=== PATIENT | male | born 1985 | race Caucasian/White ===

== ENCOUNTER 2019-09-30 05:09 | Emergency (ER) | payer SELFPAY ==
[2019-09-30] MEDS ORDERED: LIDOCAINE 1% MPF 30 ML VIAL ONE (05:23)
--- NOTE | 2019-09-30 06:54 | ER ---
Nurse's Notes [facility] Name: Alex Montez Age: 34 yrs Sex: Male : 1985 Arrival Date: 09/30/2019 Time: 05:12 Bed 6 Private MD: Diagnosis: Superficial left hand laceration;Right thumb laceration;Right 2nd digit laceration;Left upper arm laceration;Laceration of extensor muscle, fascia and tendon of left little finger at wrist and hand level Presentation: 09/29 05:13 Chief complaint: EMS states: they were toned out for report of pt with lacerations to bb bilateral hands. Coronavirus screen: At this time, the client does not indicate any symptoms associated with coronavirus-19. Ebola Screen: No symptoms or risks identified at this time. Initial Sepsis Screen: Does the patient meet any 2 criteria? No. Patient's initial sepsis screen is negative. Does the patient have a suspected source of infection? No. Patient's initial sepsis screen is negative. Risk Assessment: Do you want to hurt yourself or someone else? Patient reports no desire to harm self or others. Onset of symptoms was September 30, 2019. 05:13 Method Of Arrival: EMS: [facility] bb 05:13 Acuity: IVANNA 3 bb Historical: - Allergies: 05:15 No Known Allergies; bb - Home Meds: 05:15 None [Active]; bb - PMHx: 05:15 Anxiety; bb - PSHx: 05:15 None; bb - Immunization history:: Adult Immunizations unknown, Last tetanus immunization: < 5 years ago. - Social history:: Smoking status: Patient reports the use of cigarette tobacco products, smokes one pack cigarettes per day. Patient uses alcohol, occasionally. street drugs, Methamphetamine (Meth). - Family history:: not pertinent. - Hospitalizations: : No recent hospitalization is reported. Screenin:18 Abuse screen: Denies threats or abuse. Denies injuries from another. Nutritional rr5 screening: No deficits noted. Tuberculosis screening: No symptoms or risk factors identified. Fall Risk None identified. Total Jordan Fall Scale indicates No Risk (0-24 pts). Assessment: 05:15 General: Appears in no apparent distress. uncomfortable, Behavior is calm, cooperative, rr5 appropriate for age, accompanied by [place] police placed on handcuff right hand.. 05:15 Pain: Complains of pain in dorsum of left hand Pain currently is 9 out of 10 on a pain rr5 scale. Quality of pain is described as aching, Pain began suddenly, Is intermittent. Neuro: Level of Consciousness is awake, alert, obeys commands, Oriented to person, place, time, situation. Cardiovascular: Capillary refill < 3 seconds Patient's skin is warm and dry. Respiratory: Airway is patent Respiratory effort is even, unlabored, Respiratory pattern is regular, symmetrical. GI: No signs and/or symptoms were reported involving the gastrointestinal system. : No signs and/or symptoms were reported regarding the genitourinary system. EENT: No signs and/or symptoms were reported regarding the EENT system. Derm: Skin temperature is warm Wound noted right hand and left hand Wound is lacerated wound left hand abrasion, right hand thumb and pointing finger cut wound noted. Musculoskeletal: Capillary refill < 3 seconds. 06:10 Reassessment: Patient appears in no apparent distress at this time. local anesthesia rr5 injected by ED provider. wound cleaning and suture done on the lacerated wound right thumb, pointing finger left upper arm. 06:20 Reassessment: wound exploration on the left hand done by ED provider cut tendon noted. rr5 with plan to be transfer refer to hand surgeon. 06:55 Reassessment: ED provider spoke to hand surgeon with order to close the wound and rr5 follow up [employer] on tuesday. Vital Signs: 05:13 BP 126 / 99; Pulse 123; Resp 16 S; Temp 98.6(O); Pulse Ox 97% on R/A; Weight 76.2 kg bb (R); Height 6 ft. 0 in. (182.88 cm) (R); Pain 9/10; 05:37 BP 128 / 84; Pulse 111; Resp 19; Pulse Ox 99% ; rr5 06:30 BP 121 / 70; Pulse 110; Resp 18; Pulse Ox 99% ; rr5 05:13 Body Mass Index 22.78 (76.20 kg, 182.88 cm) bb ED Course: 05:12 Patient arrived in ED. rn 05:12 Ishaan Braun MD is Attending Physician. rn 05:14 Lyndon Westbrook RN is Primary Nurse. rr5 05:15 Triage completed. bb 05:15 Arm band placed on Patient placed in an exam room, on a stretcher, on pulse oximetry, bb accompanied by PD. 05:18 Patient has correct armband on for positive identification. Bed in low position. Call rr5 light in reach. Side rails up X2. Pulse ox on. NIBP on. 05:30 Wound care: to laceration located on left hand was cleaned with Hibiclens, irrigated rr5 with normal saline, Patient tolerated well. 05:54 XRAY Hand LEFT 3 View In Process Unspecified. EDMS 05:54 XRAY Hand RIGHT 3 View In Process Unspecified. EDMS 07:00 Assist provider with laceration repair on right hand, left arm and left hand that was rr5 between 2.6 to 7.5 cm using sutures. Set up tray. Performed by Ishaan Braun MD Dressed with 4X4s, Kerlix, Neosporin, Patient tolerated well. lacerated on right thumb, right pointing finger, left upper arm and left hand. 07:00 Patient did not have IV access during this emergency room visit. rr5 Administered Medications: 06:10 Drug: Lidocaine (1 %) 1 vials {Note: given by dr. braun.} Volume: 20 ml; Route: rr5 Infiltration; 07:10 Drug: [place]acey 10 mg-325 mg 1 tabs {Note: rass 0.} Route: PO; rr5 07:26 Follow up: Response: No adverse reaction; Pain is decreased bp 07:11 Drug: KeFLEX 500 mg Route: PO; rr5 07:27 Follow up: Response: No adverse reaction bp Outcome: 06:54 Discharge ordered by . rn 07:28 Discharged to home ambulatory. bp 07:28 Condition: stable 07:28 Discharge instructions given to patient, Instructed on discharge instructions, follow up and referral plans. medication usage, Demonstrated understanding of instructions, follow-up care, medications, splint care, Prescriptions given X 2. 07:29 Patient left the ED. bp Signatures: Dispatcher [employer] Monika Ta RN RN Ishaan Parish MD MD rn Peltier, Brian, RN RN bp Roque, Raymond, RN RN rr5 Corrections: (The following items were deleted from the chart) 05:23 05:15 Derm: Skin temperature is warm Wound noted right hand and left hand Wound is rr5 lacerated wound left hand abrasion right hand rr5
--- NOTE | 2019-09-30 06:54 | EDPHYS ---
Physician Documentation [facility] Name: Alex Montez Age: 34 yrs Sex: Male : 1985 Arrival Date: 09/30/2019 Time: 05:12 Bed 6 Private MD: ED Physician Ishaan Braun HPI: 09/29 05:13 This 34 yrs old Male presents to ER via Unassigned with complaints of rn laceration/hand injury. 05:13 The laceration(s) is(are) located on the right hand and left hand. Onset: The rn symptoms/episode began/occurred just prior to arrival. It is unknown whether or not the patient has had similar symptoms in the past. Per report, patient broke glass with hands, + moderate sized laceration left hand, does not feel foreign body present, small abrasions to both hands, no other injuries. . Historical: - Allergies: 05:15 No Known Allergies; bb - Home Meds: 05:15 None [Active]; bb - PMHx: 05:15 Anxiety; bb - PSHx: 05:15 None; bb - Immunization history:: Adult Immunizations unknown, Last tetanus immunization: < 5 years ago. - Social history:: Smoking status: Patient reports the use of cigarette tobacco products, smokes one pack cigarettes per day. Patient uses alcohol, occasionally. street drugs, Methamphetamine (Meth). - Family history:: not pertinent. - Hospitalizations: : No recent hospitalization is reported. ROS: 05:13 Constitutional: Negative for fever, chills, and weight loss, MS/Extremity: + laceration rn left hand Neuro: Negative for weakness, numbness, tingling Exam: 05:13 Constitutional: This is a well developed, well nourished patient who is awake, alert, rn and in no acute distress. MS/ Extremity: Pulses equal, no cyanosis. Neurovascular intact. Full, normal range of motion. +left dorsal hand with irregular/superficial laceration approx 5 cm in length, no active bleeding. No foreign bodies identified. Right dorsal thumb with 1 cm superficial laceration along IP joint. Right 2nd digit with 2cm superficial laceration. Left triceps area with 2 cm superficial laceration. + partial tendon laceration looks like EDM, patient still able to extend all digits to straight position, slight weakness of left 5th digit to active resistance. Vital Signs: 05:13 BP 126 / 99; Pulse 123; Resp 16 S; Temp 98.6(O); Pulse Ox 97% on R/A; Weight 76.2 kg bb (R); Height 6 ft. 0 in. (182.88 cm) (R); Pain 9/10; 05:37 BP 128 / 84; Pulse 111; Resp 19; Pulse Ox 99% ; rr5 06:30 BP 121 / 70; Pulse 110; Resp 18; Pulse Ox 99% ; rr5 05:13 Body Mass Index 22.78 (76.20 kg, 182.88 cm) Procedures: 07:01 Splinting: Splint applied to dorsum of left hand and left hand using Orthoglass splint, rn applied by Examined by me, post splint application: neurovascular intact, 2+ distal pulses palpable, brisk capillary refill noted, Patient tolerated well. Laceration: 06:44 Wound Repair of 5cm ( 2.0in ) subcutaneous laceration to dorsum of left hand. Distal rn neuro/vascular/tendon intact. Anesthesia: Wound infiltrated with 3 mls of 1% lidocaine. Wound prep: Extensive cleansing by nurse, Wound irrigation by nurse, Wound explored extensively, Copious irrigation. Skin closed with 13 4-0 Prolene using interrupted sutures and sterile technique. Dressed with Kerlix. Patient tolerated well. 06:44 Wound Repair of 2cm ( 0.8in ) subcutaneous laceration to left upper arm. Distal rn neuro/vascular/tendon intact. Anesthesia: Wound infiltrated with 1 mls of 1% lidocaine. Wound prep: Extensive cleansing by nurse, Wound irrigation by nurse, Wound explored extensively. Skin closed with 2 3-0 Prolene using interrupted sutures and sterile technique. Dressed with bandaid. Patient tolerated well. 06:44 Wound Repair of 1cm ( 0.4in ) subcutaneous laceration to right thumb. Distal rn neuro/vascular/tendon intact. Anesthesia: Wound infiltrated with 1 mls of 1% lidocaine. Wound prep: Extensive cleansing by nurse, Wound irrigation by nurse, Wound explored extensively. Skin closed with 2 3-0 Prolene using interrupted sutures and sterile technique. Dressed with bandaid. Patient tolerated well. 06:44 Wound Repair of 1cm ( 0.4in ) subcutaneous laceration to right 2nd digit. Distal rn neuro/vascular/tendon intact. Anesthesia: Wound infiltrated with 1 mls of 1% lidocaine. Wound prep: Extensive cleansing by tv technician, Wound irrigation by nurse, Wound explored extensively. Skin closed with 2 3-0 Prolene using interrupted sutures and sterile technique. Dressed with bandaid. Patient tolerated well. MDM: 05:12 Patient medically screened. rn 06:27 ED course: Spoke with Dr. Salgado, who states patient does not need to be transferred rn for emergent care for tendon laceration, recommends outpt f/u on Tuesday, gave me numbers [phone] and [phone] for patient to call. Requests suture of skin and place in splint.. 06:44 Differential diagnosis: superficial laceration, tendon injury. Data reviewed: vital rn signs, nurses notes, radiologic studies, plain films, and as a result, I will discharge patient. Counseling: I had a detailed discussion with the patient and/or guardian regarding: the historical points, exam findings, and any diagnostic results supporting the discharge/admit diagnosis, radiology results, the need for outpatient follow up, to return to the emergency department if symptoms worsen or persist or if there are any questions or concerns that arise at home. Response to treatment: the patient's symptoms have markedly improved after treatment, and as a result, I will discharge patient. ED course: Pt notified by police, that is free to go, will issue warrants. Spoke at length with patient regarding importance of f/u with Dr. Salgado for definitive care. . 09/29 05:13 Order name: XRAY Hand LEFT 3 View rn 09/29 05:19 Order name: XRAY Hand RIGHT 3 View rn 09/29 05:13 Order name: Wound Care; Complete Time: 05:22 rn 09/29 05:13 Order name: Wound dressing; Complete Time: 05:21 rn 09/29 06:25 Order name: Prolene, Sutures; Complete Time: 06:25 rr5 09/29 06:25 Order name: Dressing - Wound; Complete Time: 06:25 rr5 09/29 06:25 Order name: Gloves, Sterile; Complete Time: 06:25 rr5 09/29 06:25 Order name: Setup Suture Tray; Complete Time: 06:25 rr5 09/29 06:52 Order name: Splint - Ulnar Gutter: splint with 4th/5th digits in extension; Complete rn Time: 07:26 Administered Medications: 06:10 Drug: Lidocaine (1 %) 1 vials {Note: given by dr. braun.} Volume: 20 ml; Route: rr5 Infiltration; 07:10 Drug: [place] 10 mg-325 mg 1 tabs {Note: rass 0.} Route: PO; rr5 07:26 Follow up: Response: No adverse reaction; Pain is decreased bp 07:11 Drug: KeFLEX 500 mg Route: PO; rr5 07:27 Follow up: Response: No adverse reaction bp Disposition: 09/30/19 06:54 Discharged to Home. Impression: Superficial left hand laceration, Right thumb laceration, Right 2nd digit laceration, Left upper arm laceration, Laceration of extensor muscle, fascia and tendon of left little finger at wrist and hand level. - Condition is Stable. - Discharge Instructions: Cast or Splint Care, Adult, Laceration Care, Adult, Tendon Repair. - Prescriptions for Keflex 500 mg Oral Capsule - take 1 capsule by ORAL route every 12 hours for 10 days; 20 capsule. Tylenol- Codeine #3 300-30 mg Oral Tablet - take 2 tablets by ORAL route every 6 hours As needed; 20 tablet. - Medication Reconciliation Form, Thank You Letter, Antibiotic Education, Prescription Opioid Use form. - Follow up: Private Physician; When: 10/01/2019; Reason: Recheck today's complaints, Continuance of care. - Problem is new. - Symptoms have improved. - Notes: Call for appointment this September with Dr. Salgado, hand surgeon with [facility]. Call either [phone] or [phone]. Again, he can see you in clinic this Tuesday if you call for appointment and show up. Signatures: Dispatcher [employer] EDMonika Mayer RN RN bb Nieto, Roman, MD MD rn Peltier, Brian, RN RN bp Roque, Raymond, RN RN rr5 Corrections: (The following items were deleted from the chart) 05:20 05:13 Constitutional: This is a well developed, well nourished patient who is awake, rn alert, and in no acute distress. MS/ Extremity: Pulses equal, no cyanosis. Neurovascular intact. Full, normal range of motion. +left dorsal hand with irregular/superficial laceration approx 5 cm in length, no aactive bleeding. No foreign bodies identified. rn 06:45 05:13 Constitutional: This is a well developed, well nourished patient who is awake, rn alert, and in no acute distress. MS/ Extremity: Pulses equal, no cyanosis. Neurovascular intact. Full, normal range of motion. +left dorsal hand with irregular/superficial laceration approx 5 cm in length, no aactive bleeding. No foreign bodies identified. Right dorsal thumb with 1 cm superficial laceration along IP joint. rn 07:02 05:13 Constitutional: This is a well developed, well nourished patient who is awake, rn alert, and in no acute distress. MS/ Extremity: Pulses equal, no cyanosis. Neurovascular intact. Full, normal range of motion. +left dorsal hand with irregular/superficial laceration approx 5 cm in length, no active bleeding. No foreign bodies identified. Right dorsal thumb with 1 cm superficial laceration along IP joint. Right 2nd digit with 2cm superficial laceration. Left triceps area with 2 cm superficial laceration. rn 07:29 06:54 09/30/2019 06:54 Discharged to Home. Impression: Superficial left hand bp laceration; Right thumb laceration; Right 2nd digit laceration; Left upper arm laceration; Laceration of extensor muscle, fascia and tendon of left little finger at wrist and hand level. Condition is Stable. Forms are Medication Reconciliation Form, Thank You Letter, Antibiotic Education, Prescription Opioid Use. Follow up: Private Physician; When: 10/01/2019; Reason: Recheck today's complaints, Continuance of care. Problem is new. Symptoms have improved. rn
[2019-09-30] MEDS ORDERED: CEPHALEXIN 250 MG CAP ONE (07:19)
[2019-09-30] MEDS ORDERED: HYDROCODONE/APAP 10/325 TAB ONE (07:19)
--- NOTE | 2019-09-30 08:45 | RAD REPORT ---
EXAM DESCRIPTION: RAD -Hand Left 3 View - 09/30/2019 5:54 am CLINICAL HISTORY: Left hand pain status post injury FINDINGS: No fracture or dislocation is seen. A soft tissue laceration
--- NOTE | 2019-09-30 08:46 | RAD REPORT ---
EXAM DESCRIPTION: RAD - Hand Right 3 View - 09/30/2019 5:54 am CLINICAL HISTORY: Right hand pain status post injury FINDINGS: No fracture or dislocation is seen. A soft tissue laceration
== END 2019-09-30 07:29 | disposition home or self-care (01) ==
LOC: ER 05:09
PROC: 0JQK0ZZ Repair Left Hand Subcutaneous Tissue and Fascia, Open Approach (ICD-10-PCS; principal; 2019-09-30)
PROC: 0JQJ0ZZ Repair Right Hand Subcutaneous Tissue and Fascia, Open Approach (ICD-10-PCS; 2019-09-30)
PROC: 0JQF0ZZ Repair Left Upper Arm Subcutaneous Tissue and Fascia, Open Approach (ICD-10-PCS; 2019-09-30)
DX: S41.112A Laceration without foreign body of left upper arm, initial encounter (principal); S61.011A Laceration without foreign body of right thumb without damage to nail, initial encounter; S61.212A Laceration without foreign body of right middle finger without damage to nail, initial encounter; S66.327A Laceration of extensor muscle, fascia and tendon of left little finger at wrist and hand level, initial encounter; W25.XXXA Contact with sharp glass, initial encounter; Y93.9 Activity, unspecified; Y92.9 Unspecified place or not applicable; F17.210 Nicotine dependence, cigarettes, uncomplicated
CPT/HCPCS: 99284

== ENCOUNTER 2021-10-29 12:11 | Emergency (ER) | payer SELFPAY ==
--- OUTSIDE RECORDS SUMMARY | 2021-10-29 12:16 | XMS REPORT | Continuity of Care Document ---
:1985 Author Organization [facility] t Address [address] [place] [address] Care Team Providers Name Role Phone Pcp, Patient Does Not Have A Primary Care Physician [phone] MARYJO SWENSON Attending Clinician Unavailable Maryjo Swenson MD Attending Clinician Gregg Olivier MD Attending Clinician Afia Dickinson DO Attending Clinician AFIA DICKINSON Attending Clinician Unavailable PING CLINE Attending Clinician Unavailable GREGG OLIVIER Admitting Clinician Unavailable Gregg Olivier MD Admitting Clinician Problems Condition Condition Condition Status Onset Resolution Last Treating Co mments Source Name Details Category Date Date Treatment Clinician Date Rhabdomyol Rhabdomyol Disease Active U nivers ysis ysis 10-15 ity of 00:00: [address] Allergies, Adverse Reactions, Alerts Allergy Allergy Status Severity Reaction(s) Onset Inactive Treating Comm ents Source Name Type Date Date Clinician NO KNOWN Drug Active Univers ALLERGIE Class ity of S [facility] Social History Social Habit Start Date Stop Date Quantity Comments Source Alcohol intake 2021-10-15 2021-10-15 Current drinker Unive rsity of 00:00:00 00:00:00 of alcohol [facility] [place] Tobacco use and 2021-10-15 2021-10-15 Smokeless tobacco Un iversity of exposure 00:00:00 00:00:00 non-user [facility] Exposure to 2021-10-04 2021-10-14 Unable to assess Univers ity of SARS-CoV-2 00:00:00 23:26:00 [facility] (event) Branch History of 2011-03-17 Cigarette Smoker Universi ty of tobacco use 00:00:00 [facility] Sex [birth year] Universit y of 00:00:00 00:00:00 [facility] Smoking Status Start Date Stop Date Source Ex-smoker 2021-10-15 00:00:00 2021-10-15 00:00:00 Universi ty of [facility] Medications Ordered Filled Start Stop Current Ordering Indication Dosage Frequency Signature Comments Components Source Medication Medication Date Date Medication? Clinician (SIG) Name Name enoxaparin Yes 30mg 30 mg, Unive rs (LOVENOX) 10-15 Subcutaneo ity of injection 22:00: [place], [place], [place] 30 mg 00 First dose Medical on [facility] 10/15/21 at 1700, Until Discontinu ed, Routine multivitami Yes 1{tbl} 1 tablet, Univers n tablet 1 10-15 Oral, ity of tablet 14:00: DAILY, [place] 00 First dose Medical on [facility] 10/15/21 at 0900, Until Discontinu ed, Routine foLIC acid Yes 1mg 1 mg, Univer s (FOLATE) 10-15 Oral, ity of tablet 1 mg 14:00: [place]ILY, [place] First dose Medical on [facility] 10/15/21 at 0900, Until Discontinu ed, Routine thiamine Yes 100mg 100 mg, Unive rs (VITAMIN 10-15 Oral, ity of B1) tablet 14:00: DAILY, [place] 100 mg 00 First dose Medical on [facility] 10/15/21 at 0900, Until Discontinu ed, Routine docusate Yes 100mg 100 mg, Unive rs (COLACE) 10-15 Oral, BID, ity o f capsule 100 13:00: First dose [place] mg 00 on [facility] 10/15/21 at Branch 0800, Until Discontinu ed, Routine Sliding 2022-0 Yes Subcutaneo Univ ers Scale 9-08 us, TID ity of Insulin - 13:00: MEALS, [place] Lispro 00 First dose Medical (HumaLOG) + on [facility] 10/15/21 at Testing 0800, Until Discontinu ed, Routine thiamine 2021- Yes 300mg IV Univers (VITAMIN 10-15 Piggyback, ity of B1) 300 mg 11:00: 10:59 QAM-0600, [place] in NaCl 00 :00 2 doses, Medical 0.9% (NS) First dose Bran ch piggyback on Tue10/15/21 at 0600, Last dose on Tue10/16/21 at 0600, 100 mL NaCl 0.9% Yes 1000mL at 100 Univ ers (NS) IV 908 mL/hr, IV ity of infusion 08:00: Infusion, [place] 1,000 mL 00 CONTINUOUS Medic al , Starting Branch on Tue10/15/21 at 0300, Until Discontinu ed, Routine NaCl 0.9% 2021- No 1000mL at 999 Uni vers (NS) bolus 10-15 mL/hr, ity of infusion 05:45: 06:26 1,000 mL, Pool as 1,000 mL 00 :00 IV Medical Infusion, Branch ONCE, 1 dose, On Tue10/15/21 at 0045, STAT NaCl 0.9% 2021- No 2000mL at 999 Uni vers (NS) bolus 10-15 mL/hr, ity of infusion 05:00: 05:40 2,000 mL, Pool as 2,000 mL 00 :00 IV Medical Infusion, Branch ONCE, 1 dose, On Tue10/15/21 at 0000, JANES LORazepam 2021- No 2mg 2 mg, Slow U nivers (ATIVAN) 10-15 IV Push, ity of injection 2 04:45: 04:31 ONCE, 1 [place] mg 00 :00 dose, On Medical 10/14/21 Branch at 2345, STAT
Is the medication being used for status epilepticu s? No LORazepam 2021- No 2mg 2 mg, Slow U nivers (ATIVAN) 10-15 IV Push, ity of injection 2 04:15: 04:07 ONCE, 1 [place] mg 00 :00 dose, On Medical 10/14/21 Branch at 2315, STAT
Is the medication being used for status epilepticu s? No ibuprofen No 600mg 600 mg, Uni vers (IBU) 07-27 06-20 Oral, ity of tablet 600 19:30: 18:18 ONCE, 1 [place] mg 00 :00 dose, On Medical Mon Branch 07/27/21 at 1430, JANES NaCl 0.9% No 1000mL at 999 Uni vers (NS) bolus 07-27 06-20 mL/hr, ity of infusion 18:45: 18:16 1,000 mL, Pool as 1,000 mL 00 :00 IV Medical Infusion, Branch ONCE, 1 dose, On 07/27/21 at 1345, JANES terazosin 5 Yes 5mg Take 1 Univ ers mg capsule 03-17 capsule by ity of 00:00: mouth at [place] 00 bedtime. Medical Branch terazosin 5 No 5mg Take 1 Uni vers mg capsule 03-17 capsule by it y of 00:00: 00:00 mouth at [place] 00 :00 bedtime. [facility] Vital Signs Vital Name Observation Time Observation Value Comments Source Systolic blood 2021-10-15 16:19:00 162 mm[Hg] Univer sity [facility] Diastolic blood 2021-10-15 16:19:00 105 [facility] 2021-10-15 16:19:00 100 /min [facility] Body temperature 2021-10-15 16:19:00 35.78 [facility] Respiratory rate 2021-10-15 16:19:00 18 /min [facility] acute hospital Oxygen saturation in 2021-10-15 16:19:00 98 /min [facility] Arterial blood by [facility] Pulse oximetry Branch Body weight 2021-10-15 09:56:00 76.975 kg [facility] BMI 2021-10-15 09:56:00 25.80 kg/m2 [facility] Body height 2021-10-15 04:04:00 172.7 cm Universi ty [facility] Systolic blood 2021-07-27 17:27:00 152 mm[Hg] Univer sity of pressure [facility] Diastolic blood 2021-07-27 17:27:00 99 mm[Hg] [facility] Heart rate 2021-07-27 17:27:00 100 /min [facility] ty [facility] Body temperature 2021-07-27 17:27:00 37.22 [facility] Respiratory rate 2021-07-27 17:27:00 18 /min [facility] height 2021-07-27 17:27:00 182.9 cm [facility] Body weight 2021-07-27 17:27:00 81.647 kg [facility] BMI 2021-07-27 17:27:00 24.41 kg/m2 [facility] Oxygen saturation in 2021-07-27 17:27:00 99 /min [facility] Arterial blood by [facility] Pulse oximetry Branch Procedures Procedure Date / Time Performing Clinician Source Performed SEDIMENTATION RATE 2021-10-15 16:08:00 Gregg Olivier [facility] PROTHROMBIN TIME / INR 2021-10-15 16:08:00 Gregg Olivier [facility] N-TERMINAL PRO-BNP 2021-10-15 16:08:00 Gregg Olivier [facility] AC VBG + LACTIC ACID 2021-10-15 16:08:00 Gregg [facility] CREATINE KINASE 2021-10-15 16:08:00 Gregg Olivier [facility] URIC ACID 2021-10-15 16:08:00 Gregg Olivier [facility] MAGNESIUM 2021-10-15 16:08:00 Soy jese [facility] IRON PANEL 2021-10-15 16:06:00 Soy jese [facility] LACTIC ACID WHOLE BLOOD 2021-10-15 06:26:00 Afia Dickinson [facility] COVID-19 (ID NOW RAPID 2021-10-15 06:26:00 Maryjo Swenson [facility] TESTING) Medical Branch LAB ONLY COVID 2021-10-15 06:26:00 Maryjo Swenson [facility] INTERPRETATION Medical Branch ETHANOL 2021-10-15 04:07:00 Soy jese [facility] CBC WITH DIFF 2021-10-15 04:07:00 Afia Dickinson [facility] GLYCOSYLATED HEMOGLOBIN 2021-10-15 04:07:00 Soy jese [facility] (A1C) [facility] N-TERMINAL PRO-BNP 2021-10-15 04:07:00 Soy [facility] LACTIC ACID WHOLE BLOOD 2021-10-15 04:07:00 Afia Dickinson [facility] PHOSPHORUS 2021-10-15 04:07:00 Soy jese [facility] CREATINE KINASE 2021-10-15 04:07:00 Afia Dickinson [facility] URIC ACID 2021-10-15 04:07:00 Soy [facility] MAGNESIUM 2021-10-15 04:07:00 Soy [facility] FERRITIN SERUM 2021-10-15 04:07:00 Soy [facility] THYROID STIMULATING 2021-10-15 04:07:00 Soy jese [facility] HORMONE [facility] Branch COMP. METABOLIC PANEL 2021-10-15 04:07:00 Afia Dickinson [facility] ([id number]) [facility] LIPID PANEL ([id number])(TOTAL 2021-10-15 04:07:00 Gregg Olivier [facility] CHOLESTEROL, [facility] TRIGLYCERIDES, HDL) Encounters Start End Encounter Admission Attending Care Care Encounter Source Date/Time Date/Time Type Type Clinicians Facility Department ID 2021-10-14 2021-10-15 Outpatient X [facility] [id number] Univers 23:11:00 13:35:00 MARYJO hammer [facility] 2021-10-14 2021-10-15 Emergency Maryjo Swenson [facility] [id number] Univers 23:11:00 13:35:00 Gregg OlivierLISA [id number] ity of [place] [id number] [facility] [id number] [place] [id number] Branch 2021-07-27 2021-07-27 Emergency [facility] [id number] Univers 12:28:00 13:37:00 Afia HEBERT [id number] ity of [place] [id number] [facility] [id number] [place] [id number] [place] 2021-07-27 2021-07-27 Emergency X [facility] ERT [id number] Univers 12:28:00 13:37:00 [facility] 2019-10-16 2019-10-16 [id number] [facility] 10:30:00 10:30:00 PING [facility] Results Test Description Test Time Test Comments Results Result Comments Source SEDIMENTATION RATE 2021-10-15 17:18:43 Test Item Value Reference Range Interpretation Comme nts ESR (test code = 1746996199) See_Comment [Automated message] The system which generated this result transmitted ref erence range: 0 - 10 mm/HR. The r eference range was not used to int erpret this result as normal/abnor mal. Lab Interpretation (test code = Normal 72235-0) [facility] [id number] 17:15:10 Test Item Value Reference Range Interpretation Comments NT-proBNP (test code 43 pg/mL See_Comment [Autom ated = 0810312767) message] The system which generated this result transmitted reference range : <=125. The reference range was not used to interpret this result as normal/abnormal . KEVIN (test code = KEVIN) Biotin has been reported to cause a negative bias, interpret results relative to patient's use of biotin. Lab Interpretation Normal (test code = 71993-4) [facility] [place] [facility] CampusIRON [id number] 17:13:08 Test Item Value Reference Range Interpretation Comments IRON (test code = 0457632553) 146 ug/dL 50-160 TIBC (test code = 2277317476) 272 ug/dL 250-410 % FE SAT (test code = 1680401937) 54 % 20-50 H Lab Interpretation (test code = Abnormal 85914-6) [facility] [place] [facility] CampusMAGNESIUM2022-09-08 17:04:30 Test Item Value Reference Range Interpretation Comments MAGNESIUM (test code = 3676964890) 2.6 mg/dL 1.7-2.4 H Lab Interpretation (test code = Abnormal 47005-0) [facility] [place] [facility]URIC [id number] 17:04:30 Test Item Value Reference Range Interpretation Comments URIC ACID (test code = 2166838633) 4.0 mg/dL 3.6-8 Lab Interpretation (test code = Normal 48638-0) [facility] [place] [facility] CampusCREATINE [id number] 17:04:10 Test Item Value Reference Range Interpretation Comments CK (test code = 7843373624) 697 U/L 33-194 H Lab Interpretation (test code = Abnormal 60430-9) [facility] [place] [facility] CampusProthrombin Time / [id number] 16:56:07 Test Item Value Reference Range Interpretation Comments PROTIME PATIENT (test See_Comment [Auto mated message] code = 5964-2) The system wh ich generated this result transmitted ref erence range: 12.0 - 1 4.7 Seconds. The re ference range was not u sed to interpret this result as normal/abnor mal. INR (test code = 6301-6) Nor mal INR <1.1; Warfarin Therap eutic range 2.0 to 3. 0 or 2.5 to 3.5, dep ending upon the indica tions. Lab Interpretation (test Normal code = 40440-5) [facility] [place] [facility] CampusAC VBG + LACTIC [id number] 16:48:15 Test Item Value Reference Range Interpretation Comments PH (test code = 7.32-7.42 1940300043) PCO2 SUSY (test code = See_Comment L [Auto mated 8207395026) message] The sy stem which generated this result transmitted reference range : 41 - 51 mmHg. The reference range was not used to interpret this result as normal/abnormal . PO2 SUSY (test code = See_Comment HH [Autom ated 3306578506) message] The sy stem which generated this result transmitted reference range : 25 - 40 mmHg. The reference range was not used to interpret this result as normal/abnormal . HCO3 SUSY (test code = See_Comment L [Auto mated 4535924510) message] The sy stem which generated this result transmitted reference range : 24 - 28 mEq/L. The reference range was not used to interpret this result as normal/abnormal . AC VBE(BEAKER) (test mEq/L code = 3038221678) LACTIC ACID (test code 1.25 mmol/L 0.5-2.2 = 7802123624) Lab Interpretation Abnormal (test code = 14625-2) [facility] [place] [facility] CampusFERRITIN [id number] 11:59:17 Test Item Value Reference Range Interpretation Comments FERRITIN (test code = 141.0 ng/mL 18-464 9624971063) KEVIN (test code = KEVIN) Biotin has been reported to cause a negative bias, interpret results relative to patient's use of biotin. Lab Interpretation (test Normal code = 02619-3) [facility] [place] [facility] CampusTHYROID STIMULATING [id number] 11:55:15 Test Item Value Reference Range Interpretation Comments TSH (test code = See_Comment [Automated message] 9010281116) The system [employer] generated this result transmitted ref erence range: 0.45 - 4 .70 mIU/L. The refe rence range was not u sed to interpret this result as normal/abnor mal. Lab Interpretation (test Normal code = 99896-5) [facility] CampusN-TERMINAL [id number] 11:33:36 Test Item Value Reference Range Interpretation Comments NT-proBNP (test code 53 pg/mL See_Comment [Autom ated = 5758770872) message] The system which generated this result transmitted reference range : <=125. The reference range was not used to interpret this result as normal/abnormal . KEVIN (test code = KEVIN) Biotin has been reported to cause a negative bias, interpret results relative to patient's use of biotin. Lab Interpretation Normal (test code = 22333-2) [facility] [place] [facility] CampusETHANOL2022-09-08 11:31:15 ALCOHOL<10mg/dL10/15/2021 6:31 AM [facility]<10 Xetnrrtu78-035 Toxic>100 Depression of [employer]>400 Fatalities ReportedUnHCA [facility] CypressMAGNESIUM2022-09-08 11:31:05 Test Item Value Reference Range Interpretation Comments MAGNESIUM (test code = 7875081669) 2.3 mg/dL 1.7-2.4 Lab Interpretation (test code = Normal 78058-0) [facility] [place] [facility] CampusURIC [id number] 11:31:00 Test Item Value Reference Range Interpretation Comments URIC ACID (test code = 5987072702) 7.8 mg/dL 3.6-8 Lab Interpretation (test code = Normal 78536-9) [facility] [place] [facility] CampusPHOSPHORUS2022-09-08 11:30:50 Test Item Value Reference Range Interpretation Comments PHOSPHORUS (test code = 6362327904) 5.6 mg/dL 2.5-5 H Lab Interpretation (test code = Abnormal 70927-3) [facility] CampusLIPID PANEL (01327)(TOTAL CHOLESTEROL, TRIGLYCERIDES, HDL)2021-10-15 11:24:12 Test Item Value Reference Range Interpretation Comments CHOL (test code = 148 mg/dL 120-200 2282281239) HDL (test code = 52 mg/dL See_Comment [Automated message] 7285440382) The system [employer] generated this result transmit sharath reference range : >=40. The refer ence range was not u sed to interpret th is result as normal/abnormal . HDLC RATIO (test code = See_Comment [Au tomated message] 4469195967) The system [employer] generated this result transmit sharath reference range : <=5.0. The refe rence range was not u sed to interpret th is result as normal/abnormal . TRIG (test code = 66 mg/dL 30-170 0730804557) LDL CHOL (test code = 83 mg/dL See_Comment [Auto mated message] 71351-4) The system [employer] generated this result transmit sharath reference range : <=160. The refe rence range was not u sed to interpret th is result as normal/abnormal . VLDL (test code = 13 mg/dL 5-60 9305469296) Lab Interpretation (test Normal code = 23045-1) [facility] [place] [facility] CampusGLYCOSYLATED HEMOGLOBIN (A1C)2021-10-15 09:50:17 Test Item Value Reference Range Interpretation Comments HGB A1C (test code = 5.5 % 4-5.7 4548-4) KEVIN (test code = KEVIN) Reference RangesNormal: <5.7%Prediabetes: 5.7 - 6.4%Diabetes: > 6.5% Lab Interpretation (test Normal code = 87817-8) [facility]. METABOLIC PANEL (65250)2021-10-15 04:36:07 Test Item Value Reference Range Interpretation Comments NA (test code = 142 mmol/L 135-145 1049441879) K (test code = 4.0 mmol/L 3.5-5 4849670723) CL (test code = 102 mmol/L 98-108 2133203169) CO2 TOTAL (test code = 26 mmol/L 23-31 3659854146) AGAP (test code = 2-16 7638180028) BUN (test code = 29 mg/dL 7-23 H 9175204938) GLUCOSE (test code = 114 mg/dL 70-110 H 4501173716) CREATININE (test code = 1.62 mg/dL 0.6-1.25 H 8030354354) TOTAL BILI (test code = 1.9 mg/dL 0.1-1.1 H 8539014762) CALCIUM (test code = 9.8 mg/dL 8.6-10.6 4970465928) T PROTEIN (test code = 7.6 g/dL 6.3-8.2 5708660334) ALBUMIN (test code = 5.0 g/dL 3.5-5 4657481079) ALK PHOS (test code = 98 U/L 34-122 3611275458) ALTv (test code = 32 U/L 5-50 1742-6) AST(SGOT) (test code = 54 U/L 13-40 H 5866290055) eGFR (test code = mL/min/1.73m2 3975247938) KEVIN (test code = KEVIN) Association of Glomerular Filtration Rate (GFR) and Staging of Kidney Disease* + --+ --+ ------+| GFR (mL/min/1.73 m2) ?| With Kidney Damage ?| ?Without Kidney Damage+ --------+ --------+ +| ?>90 ?| ?Stage one ?| ? Normal ?+ ---+ ---+ -------+| ?60-89 ?| ?Stage two ?| ? Decreased GFR ? + --+ --+ ------+| ?30-59 ?| ?Stage three ?| ? Stage three ? + --+ --+ ------+| ?15-29 ?| ?Stage four ? | ? Stage four ?+ ---+ ---+ -------+| ?<15 (or dialysis) ? ?| ?Stage five ? | ? Stage five ?+ ---+ ---+ -------+ *Each stage assumes the associated GFR level has been in effect for at least three months. ?Stages 1 to 5, with or without kidney disease, indicate chronic kidney disease. Notes: Determination of stages one and two (with eGFR >59mL/min/1.73 m2) requires estimation of kidney damage for at least three months as defined by structural or functional abnormalities of the kidney, manifested by either:Pathological abnormalities or Markers of kidney damage (including abnormalities in the composition of the blood or urine or abnormalities in imaging tests). Lab Interpretation Abnormal (test code = 23559-0) [facility] CampusCREATINE [id number] 04:35:47 Test Item Value Reference Range Interpretation Comments CK (test code = 1113864784) 851 U/L 33-194 H Lab Interpretation (test code = Abnormal 55485-1) [facility] WITH [id number] 04:17:27 Test Item Value Reference Range Interpretation Comments WBC (test code = See_Comment H [Automated 0436-2) message] The system which generated this result transmit sharath reference range : 4.20 - 10.70 10*3/?L. The reference range was not used to interpret this result as normal/abnormal . RBC (test code = See_Comment H [Automated 265-8) message] The system which generated this result transmit sharath reference range : 4.26 - 5.52 10*6/?L. The reference range was not used to interpret this result as normal/abnormal . HGB (test code = 17.0 g/dL 12.2-16.4 H 718-7) HCT (test code = 47.7 % 38.4-49.3 4544-3) MCV (test code = 86.1 fL 81.7-95.6 787-2) MCH (test code = 30.7 pg 26.1-32.7 785-6) MCHC (test code = 35.6 g/dL 31.2-35 H 786-4) RDW-SD (test code = 37.1 fL 38.5-51.6 L 37619-3) RDW-CV (test code = 11.8 % 12.1-15.4 L 788-0) PLT (test code = See_Comment [Automated 777-3) message] The system which generated this result transmit sharath reference range : 150 - 328 10*3/ ?L. The reference range was not u sed to interpret th is result as normal/abnormal . MPV (test code = 10.0 fL 9.8-13 69691-6) NRBC/100 WBC (test See_Comment [Automat ed code = 3426313737) message] The system which generated this result transmit sharath reference range : 0.0 - 10.0 /100 WBCs. The reference range was not used to interpret this result as normal/abnormal . NRBC x10^3 (test code See_Comment [Auto mated = 8793407712) message] The system which generated this result transmit sharath reference range : 10*3/?L. The reference range was not used to interpret this result as normal/abnormal . GRAN MAT (NEUT) % 84.7 % (test code = 770-8) IMM GRAN % (test code 0.20 % = 2620160026) LYMPH % (test code = 7.3 % 736-9) MONO % (test code = 6.8 % 5905-5) EOS % (test code = 0.3 % 713-8) BASO % (test code = 0.7 % 706-2) GRAN MAT x10^3(ANC) 10.40 10*3/uL 1.99-6.95 H (test code = 2871730258) IMM GRAN x10^3 (test 0.03 10*3/uL 0-0.06 code = 8335478977) LYMPH x10^3 (test code 0.90 10*3/uL 1.09-3.23 L = 731-0) MONO x10^3 (test code 0.84 10*3/uL 0.36-1.02 = 742-7) EOS x10^3 (test code = 0.04 10*3/uL 0.06-0.53 L 711-2) BASO x10^3 (test code 0.09 10*3/uL 0.01-0.09 = 704-7) Lab Interpretation Abnormal (test code = 81050-4) [facility] CampusCT/NG, NAAT, [id number] 20:24:07 Test Item Value Reference Range Interpretation Comments GONORRHEA, NAAT NEGATIVE NEGATIVE IMPORTA NT NOTICE: SEE (test code = [place] [address]) [email or web address] Spine Note: Assay methodology is nucleic acid amplification b y yarn rewinder m ediated amplification ( TMA) utilizing the A ptima Combo 2 Assay. CHLAMYDIA, NAAT NEGATIVE NEGATIVE IMPORTA NT NOTICE: SEE (test code = [place] [address]) [email or web address] Spine Note: Assay methodology is nucleic acid amplification b y yarn rewinder m ediated amplification ( TMA) utilizing the A ptima Combo 2 Assay. [id number] 05:01:07 Test Item Value Reference Range Interpretation Comments RPR RESULT (test code = NON-REACTIVE NON-REACTIVE 3501) RPR TITER (test code = 3500) NOT INDIC. TITER NOT INDIC. HEPATITIS PANEL, [id number] 04:39:54 Test Item Value Reference Range Interpretation Comments HEPATITIS A IgM (test NON-REACTIVE NON-REACTIVE code = 35940) HEPATITIS B CORE IgM NON-REACTIVE NON-REACTIVE (test code = 4644) HEPATITIS B SURF AG NON-REACTIVE NON-REACTIVE (test code = 2739) HEPATITIS C ANTIBODY NON-REACTIVE NON-REACTIVE (test code = 4675) INTERPRETATION (NOTE) Hepatitis A HEPATITIS A: (test code sero logy shows no = 1162) evidence of acu te hepatitis A. INTERPRETATION (NOTE) Hepatitis B HEPATITIS B: (test code sero logy shows no = 82386) evidence of acu te hepatitis B and no indication of exposure to hepatitis B vir us in the previous simón eight months. INTERPRETATION (NOTE) Hepatitis C HEPATITIS C: (test code sero logy shows no = 48039) evidence of exposure to hepatitisC viru s at this time. I t can take up to 12 months after exposure tothe hepatitis C vir us for antibodies to become detectab le in the blood in certain patient s. HIV 1/2 4TH GEN, RFLX [id number] 04:39:54 Test Item Value Reference Range Interpretation Comments HIV 1/2 4TH GEN, NON-REACTIVE NON-REACTIVE UNLESS OTH ERWISE RFLX CONF (test INDICATED, A LL TESTING code = 3514) PERFORMED [facility] [employer] [address] [place] [address] 4 LABORATORY DIRE CTOR: Isha JOHNSON. CLIA NUMBER [id number] CAP ACCREDITATION N O. [id number]"
[2021-10-29] MEDS ORDERED: NA CHLORIDE 0.9% 1,000 ML ONE (13:02)
[2021-10-29 13:11] LABS: Protime INR 1.17
[2021-10-29 13:21] LABS: ALT/SGPT 60 U/L (12-78); AST/SGOT 130 U/L (15-37); Alkaline Phosphatase 91 U/L (45-117); BUN Blood Urea Nitrogen 28 mg/dL (7-18); Bicarbonate 27 mmol/L (21-32); Bilirubin Direct 0.4 mg/dL (0-0.2); Bilirubin Total 1.3 mg/dL (0.2-1.0); Glomerular Filtration Rate 83 ml/min (=/>90); Glucose Level 96 mg/dL (74-106); Potassium 3.4 mmol/L (3.5-5.1); Protein, Total 7.7 g/dL (6.4-8.2); Sodium Level 136 mmol/L (136-145)
[2021-10-29 13:22] LABS: Absolute Lymphocytes (CBC) 1.3 K/uL (0.7-4.9); Hematocrit 43.3 % (39.6-49.0); Lymphocytes % 12.4 % (15.3-44.8); MCV 89.6 fL (80-100); MPV 8.5 fL (7.6-11.3); RBC Red Blood Cell Count 4.83 M/uL (4.33-5.43)
--- NOTE | 2021-10-29 15:15 | ER ---
Nurse's Notes [facility] Name: Alex Montez Age: 36 yrs Sex: Male : 1985 Arrival Date: 10/29/2021 Time: 12:14 Bed Treatment Private MD: Diagnosis: Adverse effect of amphetamines;Anxiety disorder, unspecified;Essential (primary) hypertension;Hypokalemia Presentation: 10/29 12:34 Chief complaint: Patient states: "I do methamphetamine and I need to do something with aa5 my life". Coronavirus screen: At this time, the client does not indicate any symptoms associated with coronavirus-19. Ebola Screen: Patient denies travel to an Ebola-affected area in the 21 days before illness onset. Initial Sepsis Screen: Does the patient meet any 2 criteria? No. Patient's initial sepsis screen is negative. Does the patient have a suspected source of infection? No. Patient's initial sepsis screen is negative. Risk Assessment: Do you want to hurt yourself or someone else? Patient reports no desire to harm self or others. Onset of symptoms was October 2021. 12:34 Method Of Arrival: Ambulatory aa5 12:34 Acuity: IVANNA 3 aa5 Historical: - Allergies: 12:34 No Known Allergies; aa5 - PMHx: 12:34 Anxiety; aa5 - Immunization history:: Adult Immunizations unknown. - Social history:: Smoking status: Patient reports the use of cigarette tobacco products, smokes one-half pack cigarettes per day, Patient uses street drugs, Methamphetamine (Meth). - Family history:: not pertinent. Screenin:42 Abuse screen: Denies threats or abuse. Nutritional screening: No deficits noted. bm7 Tuberculosis screening: No symptoms or risk factors identified. Fall Risk None identified. Assessment: 15:42 Reassessment: No changes from previously documented assessment. Patient and/or family bm7 updated on plan of care and expected duration. Pain level reassessed. Vital Signs: 12:34 BP 161 / 110; Pulse 110; Resp 20 S; Temp 98.7(O); Pulse Ox 100% on R/A; Weight 72.12 kg aa5 (M); Height 5 ft. 11 in. (180.34 cm) (R); 15:42 BP 112 / 90; Pulse 84; Resp 16; Pulse Ox 100% on R/A; bm7 12:34 Body Mass Index 22.18 (72.12 kg, 180.34 cm) aa5 ED Course: 12:14 Patient arrived in ED. rg4 12:34 Arm band placed on. aa5 12:37 Triage completed. aa5 12:37 Hernando Pope MD is Attending Physician. [facility] 12:49 Initial lab(s) drawn, by nj, sent to lab. Inserted saline lock: 20 gauge in left aa5 antecubital area, using aseptic technique. Blood collected. 13:12 Maral Javed, RN is Primary Nurse. bm7 15:14 Bernard Desouza MD is Referral Physician. mandi 15:42 Patient has correct armband on for positive identification. Call light in reach. bm7 15:42 No provider procedures requiring assistance completed. IV discontinued, intact, bm7 bleeding controlled, No redness/swelling at site. Pressure dressing applied. Administered Medications: 13:06 Drug: NS 0.9% 1000 ml Route: IV; Rate: 1 bolus; Site: left antecubital; aa5 15:44 Follow up: IV Status: Completed infusion; IV Intake: 1000ml bm7 15:30 Drug: Norvasc (amlodipine) 5 mg Route: PO; bm7 15:44 Follow up: Response: No adverse reaction bm7 Medication: 15:42 VIS not applicable for this client. bm7 Intake: 15:44 IV: 1000ml; Total: 1000ml. bm7 Outcome: 15:14 Discharge ordered by . [facility] 15:42 Discharged to home ambulatory. bm7 15:42 Condition: good 15:42 Discharge instructions given to patient, family, Instructed on discharge instructions, follow up and referral plans. medication usage, Demonstrated understanding of instructions, follow-up care, medications, Prescriptions given X 2. 15:45 Patient left the ED. bm7 Signatures: Hernando Pope MD MD cha Calderon, Audri, RN RN aa5 Vaishnavi Upton 4 Maral Javed, WENDIE RN bm7 Corrections: (The following items were deleted from the chart) 13:06 13:06 NS 0.9% 1000 ml IV at 1 bolus in right antecubital aa5 aa5
--- NOTE | 2021-10-29 15:15 | EDPHYS ---
Physician Documentation [facility] Name: Alex Montez Age: 36 yrs Sex: Male : 1985 Arrival Date: 10/29/2021 Time: 12:14 Bed Treatment Private MD: EMRE Physician Hernando Pope HPI: 10/29 15:10 This 36 yrs old Male presents to ER via Ambulatory with complaints of Drug mandi Withdrawals. 15:10 . on meth , wants off , not suicidal , not homicidal. Onset: The symptoms/episode mandi began/occurred 2 day(s) ago. Severity of symptoms: At their worst the symptoms were mild in the emergency department the symptoms are unchanged. The patient has experienced similar episodes in the past, multiple times. Historical: - Allergies: 12:34 No Known Allergies; aa5 - PMHx: 12:34 Anxiety; aa5 - Immunization history:: Adult Immunizations unknown. - Social history:: Smoking status: Patient reports the use of cigarette tobacco products, smokes one-half pack cigarettes per day, Patient uses street drugs, Methamphetamine (Meth). - Family history:: not pertinent. ROS: 15:10 Constitutional: Negative for fever, chills, and weight loss, Eyes: Negative for injury, mandi pain, redness, and discharge, ENT: Negative for injury, pain, and discharge, Neck: Negative for injury, pain, and swelling, Cardiovascular: Negative for chest pain, palpitations, and edema, Respiratory: Negative for shortness of breath, cough, wheezing, and pleuritic chest pain, Abdomen/GI: Negative for abdominal pain, nausea, vomiting, diarrhea, and constipation, Back: Negative for injury and pain, : Negative for injury, bleeding, discharge, and swelling, MS/Extremity: Negative for injury and deformity, Skin: Negative for injury, rash, and discoloration, Neuro: Negative for headache, weakness, numbness, tingling, and seizure, Psych: Negative for depression, anxiety, suicide ideation, homicidal ideation, and hallucinations, Allergy/Immunology: Negative for hives, rash, and allergies, Endocrine: Negative for neck swelling, polydipsia, polyuria, polyphagia, and marked weight changes, Hematologic/Lymphatic: Negative for swollen nodes, abnormal bleeding, and unusual bruising. Exam: 15:10 Constitutional: This is a well developed, well nourished patient who is awake, alert, mandi and in no acute distress. Head/Face: Normocephalic, atraumatic. Eyes: Pupils equal round and reactive to light, extra-ocular motions intact. Lids and lashes normal. Conjunctiva and sclera are non-icteric and not injected. Cornea within normal limits. Periorbital areas with no swelling, redness, or edema. ENT: Nares patent. No nasal discharge, no septal abnormalities noted. Tympanic membranes are normal and external auditory canals are clear. Oropharynx with no redness, swelling, or masses, exudates, or evidence of obstruction, uvula midline. Mucous membranes moist. Neck: Trachea midline, no thyromegaly or masses palpated, and no cervical lymphadenopathy. Supple, full range of motion without nuchal rigidity, or vertebral point tenderness. No Meningismus. Chest/axilla: Normal chest wall appearance and motion. Nontender with no deformity. No lesions are appreciated. Cardiovascular: Regular rate and rhythm with a normal S1 and S2. No gallops, murmurs, or rubs. Normal PMI, no JVD. No pulse deficits. Respiratory: Lungs have equal breath sounds bilaterally, clear to auscultation and percussion. No rales, rhonchi or wheezes noted. No increased work of breathing, no retractions or nasal flaring. Abdomen/GI: Soft, non-tender, with normal bowel sounds. No distension or tympany. No guarding or rebound. No evidence of tenderness throughout. Back: No spinal tenderness. No costovertebral tenderness. Full range of motion. Male : Normal genitalia with no discharge or lesions. Skin: Warm, dry with normal turgor. Normal color with no rashes, no lesions, and no evidence of cellulitis. MS/ Extremity: Pulses equal, no cyanosis. Neurovascular intact. Full, normal range of motion. Neuro: Awake and alert, GCS 15, oriented to person, place, time, and situation. Cranial nerves II-XII grossly intact. Motor strength 5/5 in all extremities. Sensory grossly intact. Cerebellar exam normal. Normal gait. Psych: Awake, alert, with orientation to person, place and time. Behavior, mood, and affect are within normal limits. 15:10 ECG was reviewed by the Attending Physician. Vital Signs: 12:34 BP 161 / 110; Pulse 110; Resp 20 S; Temp 98.7(O); Pulse Ox 100% on R/A; Weight 72.12 kg aa5 (M); Height 5 ft. 11 in. (180.34 cm) (R); 15:42 BP 112 / 90; Pulse 84; Resp 16; Pulse Ox 100% on R/A; bm7 12:34 Body Mass Index 22.18 (72.12 kg, 180.34 cm) aa5 MDM: 12:37 Patient medically screened. [facility] 15:15 Data reviewed: vital signs, nurses notes, lab test result(s), EKG, radiologic studies. [facility] Data interpreted: [employer]: rate is 110 beats/min, rhythm is regular, Pulse oximetry: on room air is 100 %. Test interpretation: by ED physician or midlevel provider: ECG. Counseling: I had a detailed discussion with the patient and/or guardian regarding: the historical points, exam findings, and any diagnostic results supporting the discharge/admit diagnosis, lab results, radiology results, the need for outpatient follow up, for definitive care, a family practitioner, a psychiatrist. 10/29 12:39 Order name: Acetaminophen; Complete Time: 15:02 [facility] 10/29 12:39 Order name: Basic Metabolic Panel; Complete Time: 15:02 [facility] 10/29 12:39 Order name: CBC with Diff; Complete Time: 15:02 [facility] 10/29 12:39 Order name: ETOH Level; Complete Time: 15:02 [facility] 10/29 12:39 Order name: Hepatic Function; Complete Time: 15:02 [facility] 10/29 12:39 Order name: PT-INR; Complete Time: 15:02 [facility] 10/29 12:39 Order name: Ptt, Activated; Complete Time: 15:02 [facility] 10/29 12:39 Order name: EKG; Complete Time: 12:40 [facility] 10/29 12:39 Order name: EKG - Nurse/Tech; Complete Time: 13:01 [facility] 10/29 12:39 Order name: IV Saline Lock; Complete Time: 12:50 [facility] 10/29 12:39 Order name: Labs collected and sent; Complete Time: 12:50 [facility] 10/29 12:39 Order name: Suicide Screening ([place]); Complete Time: 13:13 [facility] 10/29 15:03 Order name: PO challenge: 2 x juice; Complete Time: 15:24 mandi EC:10 Rate is 98 beats/min. Rhythm is regular. QRS [place] is Normal. SC interval is normal. QRS mandi interval is normal. QT interval is normal. No Q waves. T waves are Normal. Clinical impression: NSR w/ Non-specific ST/T Changes, LVH, and No evidence of ischemia. Interpreted by me. Reviewed by me. Administered Medications: 13:06 Drug: NS 0.9% 1000 ml Route: IV; Rate: 1 bolus; Site: left antecubital; aa5 15:44 Follow up: IV Status: Completed infusion; IV Intake: 1000ml bm7 15:30 Drug: Norvasc (amlodipine) 5 mg Route: PO; bm7 15:44 Follow up: Response: No adverse reaction bm7 Disposition Summary: 10/29/21 15:14 Discharge Ordered Location: Home mandi Problem: new mnadi Symptoms: have improved mandi Condition: Fair mandi Diagnosis - Adverse effect of amphetamines mandi - Anxiety disorder, unspecified mandi - Essential (primary) hypertension mandi - Hypokalemia mandi Followup: mandi - With: Private Physician - When: 2 - 3 days - Reason: Recheck today's complaints, Continuance of care, Re-evaluation by your physician Followup: mandi - With: Bernard Desouza MD - When: 2 - 3 days - Reason: Recheck today's complaints, Re-evaluation by your physician Discharge Instructions: - Discharge Summary Sheet mandi - Amphetamines Use Disorder mandi - Hypertension, Adult mandi - Substance Use Disorder mandi - Hypertension, Adult, [id number] mandi - Potassium Content of Foods mandi - Methamphetamines Use Disorder mandi - How to Take Your Blood Pressure, [id number] mandi - Aspirin and Your Heart mandi - Managing Your Hypertension mandi - Substance Use Disorder and Mental Illness mandi - Supporting Someone With Substance Use Disorder mandi - Managing Anxiety, Adult mandi - Hypokalemia mandi Forms: - Medication Reconciliation Form mandi - Thank You Letter mandi - Antibiotic Education mandi - Prescription Opioid Use mandi Prescriptions: - Hydroxyzine HCl 25 mg Oral Tablet - take 1 tablet by ORAL route every 6 hours As needed; 30 tablet; Refills: 0, mandi Product Selection Permitted - Norvasc 5 mg Oral Tablet - take 1 tablet by ORAL route once daily; 20 tablet; Refills: 0, Product mandi Selection Permitted Signatures: Dispatcher [employer] Hernando Rodriguez MD MD cha Calderon, Audri, RN RN aa5 Maral Javed, WENDIE RN bm7
[2021-10-29] MEDS ORDERED: AMLODIPINE 5 MG TAB ONE (15:35)
[2021-10-31 05:58] VITALS: BP 112/90; O2SAT 100
[2021-10-31 06:09] VITALS: TEMP 98.7
--- NOTE | 2021-11-02 14:19 | EKG ---
Test Date: 2021-10-29 Test Time: 13:00:57 Instructional Coordinator: RICHARD MEASUREMENT RESULTS: Intervals: Rate: 98 MI: 124 QRSD: 100 QT: 364 QTc: 464 [place]: P: 68 MI: 124 QRS: 82 T: 8 INTERPRETIVE STATEMENTS: Normal sinus rhythm Right atrial enlargement Minimal voltage criteria for LVH, may be normal variant Nonspecific T wave abnormality Prolonged QT Abnormal ECG Compared to ECG 12/13/2011 22:07:48 Atrial abnormality now present Left ventricular hypertrophy now present T-wave abnormality now present Prolonged QT interval now present Electronically Signed On 11-02-21 14:15:06 CDT by Saw Wen
== END 2021-10-29 15:45 | disposition home or self-care (01) ==
LOC: ER 12:11
DX: T43.625A Adverse effect of amphetamines, initial encounter (principal); F41.9 Anxiety disorder, unspecified; E87.6 Hypokalemia; I10 Essential (primary) hypertension
CPT/HCPCS: 36415; 80048; 80076; 80320; 80329; 85025; 85610; 85730; 93005; 96360; 96361; 99284; J7030